=== PATIENT | female | born 1970 | race Caucasian/White ===

== ENCOUNTER 2016-11-20 10:57 | Outpatient (CLI) | payer BC | END 2016-11-20 10:58 | disposition home or self-care (01) | LOC: LAB.F 10:57 | PROVIDERS: ATTEND Nurse Practitioner Family | DX: E03.9 Hypothyroidism, unspecified (principal) | CPT/HCPCS: 36415; 84443 ==

== ENCOUNTER 2017-04-14 08:00 | Outpatient (CLI) | payer BC, OTHER | END 2017-04-14 08:01 | disposition home or self-care (01) | LOC: LAB.R 08:00 | PROVIDERS: ATTEND Registered Nurse | DX: N72 Inflammatory disease of cervix uteri (principal) ==

== ENCOUNTER 2017-05-20 13:46 | Outpatient (CLI) | payer OTHER | END 2017-05-20 13:47 | disposition home or self-care (01) | LOC: LAB.R 13:46 | PROVIDERS: ATTEND Nurse Practitioner Family | DX: R19.7 Diarrhea, unspecified (principal) | CPT/HCPCS: 83630; 87045; 87046; 87077; 87177; 87209; 87493; 89055 ==

== ENCOUNTER 2017-05-27 08:00 | Outpatient (CLI) | payer OTHER | END 2017-05-27 23:59 | disposition home or self-care (01) | LOC: LAB.F 08:00 | PROVIDERS: ATTEND Nurse Practitioner Family | DX: Z53.9 Procedure and treatment not carried out, unspecified reason (principal) ==

== ENCOUNTER 2017-05-28 08:27 | Outpatient (CLI) | payer OTHER ==
[2017-05-28 13:58] LABS: THYROID STIMULATING HORMONE 4.2 uIU/mL (0.34-5.60)
[2017-05-28 14:02] LABS: FREE T4 (FREE THYROXINE) 1.03 ng/dL (0.58-1.64)
[2017-05-28 14:20] LABS: ALBUMIN 4.5 g/dL (3.2-5.5); ALBUMIN/GLOBULIN RATIO 1.8 (1.0-2.2); BILIRUBIN,TOTAL 0.6 mg/dL (0.2-1.0); CALCIUM 9.4 mg/dL (8.5-10.3); CREATININE 0.8 mg/dL (0.4-1.0)
== END 2017-05-28 08:28 | disposition home or self-care (01) ==
LOC: LAB.F 08:27
PROVIDERS: ATTEND Nurse Practitioner Family
DX: E03.9 Hypothyroidism, unspecified (principal); R19.7 Diarrhea, unspecified
CPT/HCPCS: 36415; 80053; 83630; 84439; 84443; 87045; 87046; 87177; 87209; 87493

== ENCOUNTER 2018-01-15 08:00 | Outpatient (CLI) | payer MEDICAID, OTHER | END 2018-01-15 08:01 | disposition home or self-care (01) | LOC: LAB.R 08:00 | PROVIDERS: ATTEND Physician Assistant Medical | DX: H66.001 Acute suppurative otitis media without spontaneous rupture of ear drum, right ear (principal) | CPT/HCPCS: 87070; 87077; 87181 ==

== ENCOUNTER 2018-05-31 08:00 | Outpatient (CLI) | payer MEDICAID | END 2018-05-31 23:59 | disposition home or self-care (01) | LOC: LAB.R 08:00 | PROVIDERS: ATTEND Registered Nurse | DX: N76.0 Acute vaginitis (principal); N76.2 Acute vulvitis; N72 Inflammatory disease of cervix uteri | CPT/HCPCS: 87070 ==

== ENCOUNTER 2018-06-03 11:22 | Outpatient (CLI) | payer MEDICAID ==
[2018-06-03 17:50] LABS: T4 (THYROXINE) 7.85 ug/dL (6.09-12.23)
[2018-06-03 17:54] LABS: THYROID STIMULATING HORMONE 3.15 uIU/mL (0.34-5.60)
[2018-06-05 11:56] LABS: HSV 1 IGG TYPE SPECIFIC AB 2.23 index; HSV 2 IGG TYPE SPECIFIC AB <0.90 index
== END 2018-06-03 11:23 | disposition home or self-care (01) ==
LOC: LAB.F 11:22
PROVIDERS: ATTEND Registered Nurse
DX: N73.9 Female pelvic inflammatory disease, unspecified (principal); E03.9 Hypothyroidism, unspecified
CPT/HCPCS: 36415; 81599; 84436; 84443; 86695; 86696

== ENCOUNTER 2018-06-14 08:00 | Outpatient (CLI) | payer MEDICAID | END 2018-06-14 23:59 | disposition home or self-care (01) | LOC: LAB.R 08:00 | PROVIDERS: ATTEND Registered Nurse | DX: N76.0 Acute vaginitis (principal); N72 Inflammatory disease of cervix uteri; N76.2 Acute vulvitis | CPT/HCPCS: 87070; 87147 ==

== ENCOUNTER 2019-03-08 14:15 | Outpatient (CLI) | payer MEDICAID ==
[2019-03-08 18:00] LABS: BILIRUBIN,URINE NEGATIVE (NEGATIVE); GLUCOSE, URINE (UA) NEGATIVE (NEGATIVE); KETONES,URINE (UA) NEGATIVE (NEGATIVE); LEUKOCYTE ESTERASE, URINE SMALL (NEGATIVE); NITRITE,URINE NEGATIVE (NEGATIVE); OCCULT BLOOD,URINE NEGATIVE (NEGATIVE); PH,URINE 7.5 PH (5.0-7.5); PROTEIN,URINE NEGATIVE (NEGATIVE); UROBILINOGEN,URINE 0.2 (NORMAL) E.U./dL (NORMAL)
[2019-03-08 18:09] LABS: BACTERIA,URINE None Seen /HPF (None Seen); CLARITY,URINE CLEAR (CLEAR); RBC,URINE None Seen /HPF (0-5); SQUAMOUS EPITHELIAL CELL,UR MOD Squamous (<= Few)
== END 2019-03-08 23:59 | disposition home or self-care (01) ==
LOC: LAB.R 14:15
PROVIDERS: ATTEND Family Medicine
DX: N39.0 Urinary tract infection, site not specified (principal)
CPT/HCPCS: 81001; 87077; 87086

== ENCOUNTER 2019-04-15 09:10 | Outpatient (CLI) | payer MEDICAID | END 2019-04-15 09:11 | disposition home or self-care (01) | LOC: LAB.S 09:10 | PROVIDERS: ATTEND Registered Nurse | DX: E03.9 Hypothyroidism, unspecified (principal) | CPT/HCPCS: 36415; 84443 ==

== ENCOUNTER 2020-08-03 13:33 | Outpatient (CLI) | payer MEDICAID ==
[2020-08-03 20:28] LABS: THYROID STIMULATING HORMONE 4.21 uIU/mL (0.34-5.60)
== END 2020-08-03 13:34 | disposition home or self-care (01) ==
LOC: LAB.S 13:33
PROVIDERS: ATTEND Registered Nurse
DX: E03.9 Hypothyroidism, unspecified (principal)
CPT/HCPCS: 36415; 84443

== ENCOUNTER 2021-02-06 14:00 | Outpatient (CLI) | payer MEDICAID | END 2021-02-06 23:59 | disposition home or self-care (01) | LOC: LAB.S 14:00 | PROVIDERS: ATTEND Physician Assistant | DX: N30.01 Acute cystitis with hematuria (principal) | CPT/HCPCS: 87077; 87086 ==

== ENCOUNTER 2021-10-02 12:37 | Outpatient (CLI) | payer MEDICAID ==
[2021-10-02 20:13] LABS: BASOPHILS % (AUTO) 0.9 %; EOSINOPHILS # (AUTO) 0.3 10^3/uL (0.0-0.7); EOSINOPHILS % (AUTO) 6.5 %; HCT - HEMATOCRIT 37.1 % (37.0-47.0); HGB - HEMOGLOBIN 12.1 g/dL (12.0-16.0); LYMPHOCYTES # (AUTO) 1.6 10^3/uL (1.5-3.5); LYMPHOCYTES % (AUTO) 37.9 %; MEAN CORPUSCULAR HEMOGLOBIN 32.4 pg (27.0-31.0); MEAN CORPUSCULAR HGB CONC 32.6 g/dL (32.0-36.0); MEAN CORPUSCULAR VOLUME 99.5 fL (81.0-99.0); MEAN PLATELET VOLUME 11.4 fL (7.9-10.8); MONOCYTES # (AUTO) 0.4 10^3/uL (0.0-1.0); NEUTROPHILS % (AUTO) 45.5 %; PLT - PLATELET COUNT 207 10^3/uL (130-450); RED BLOOD COUNT 3.73 10^6/uL (4.20-5.40); RED CELL DISTRIBUTION WIDTH 12.8 % (12.0-15.0); WHITE BLOOD COUNT 4.3 x10^3/uL (4.8-10.8)
[2021-10-02 20:29] LABS: ALBUMIN 4.1 g/dL (3.2-5.5); ALBUMIN/GLOBULIN RATIO 1.7 (1.0-2.2); ALKALINE PHOSPHATASE 52 IU/L (42-121); ALT ALANINE AMINOTRANSFERASE 14 IU/L (10-60); AST ASPARTATE AMINOTRANSFERASE 24 IU/L (10-42); BILIRUBIN,TOTAL 0.7 mg/dL (0.2-1.0); BUN - BLOOD UREA NITROGEN 11 mg/dL (6-20); CALCIUM 9.4 mg/dL (8.5-10.3); CARBON DIOXIDE - CO2 27 mmol/L (21-32); CHLORIDE 102 mmol/L (101-111); CHOL/HDL RATIO 1.9 (<4.4); CHOLESTEROL 139 mg/dL; CREATININE 0.9 mg/dL (0.4-1.0); GFR - MDRD 67 (>89); GLUCOSE 101 mg/dL (70-100); HDL CHOLESTEROL 73 mg/dL; POTASSIUM 4.3 mmol/L (3.5-5.0); SODIUM 137 mmol/L (135-145); TOTAL PROTEIN 6.5 g/dL (6.7-8.2); TRIGLYCERIDES 18 mg/dL
[2021-10-02 20:39] LABS: THYROID STIMULATING HORMONE 3.64 uIU/mL (0.34-5.60)
[2021-10-04 18:07] LABS: THYROGLOBULIN ANTIBODY <1.0 IU/mL (0.0-0.9); THYROID PEROXIDASE (TPO) AB 147 IU/mL (0-34)
== END 2021-10-02 12:38 | disposition home or self-care (01) ==
LOC: LAB.S 12:37
PROVIDERS: ATTEND Registered Nurse
DX: F41.9 Anxiety disorder, unspecified (principal); F32.A Depression, unspecified; Z79.899 Other long term (current) drug therapy; E03.9 Hypothyroidism, unspecified; Z13.220 Encounter for screening for lipoid disorders
CPT/HCPCS: 36415; 80053; 80061; 83721; 84443; 85025; 86376; 86800

== ENCOUNTER 2022-08-05 07:41 | Outpatient (CLI) | payer MEDICAID, OTHER | END 2022-08-05 07:42 | disposition home or self-care (01) | LOC: LAB.S 07:41 | PROVIDERS: ATTEND Internal Medicine Endocrinology, Diabetes & Metabolism | DX: E03.8 Other specified hypothyroidism (principal); E06.3 Autoimmune thyroiditis | CPT/HCPCS: 36415; 84443 ==

== ENCOUNTER 2022-10-13 09:43 | Outpatient (CLI) | payer MEDICAID, OTHER ==
[2022-10-13 15:26] LABS: THYROID STIMULATING HORMONE < 0.08 uIU/mL (0.34-5.60)
[2022-10-13 15:29] LABS: FREE T4 (FREE THYROXINE) 1.38 ng/dL (0.58-1.64)
== END 2022-10-13 09:44 | disposition home or self-care (01) ==
LOC: LAB.S 09:43
PROVIDERS: ATTEND Internal Medicine Endocrinology, Diabetes & Metabolism
DX: E03.8 Other specified hypothyroidism (principal); E06.3 Autoimmune thyroiditis
CPT/HCPCS: 36415; 84439; 84443